=== PATIENT | female | born 1985 | race Two or more races ===

== ENCOUNTER 2017-01-25 11:43 | Emergency (ER) | payer SELFPAY ==
[~2017-01-25] VITALS: Ht 154.9 cm; Wt 59.0 kg
[2017-01-25 11:50] VITALS: BP 125/76
== END 2017-01-25 14:40 | disposition left against medical advice (07) ==
LOC: ER 11:43
DX: S01.81XA Laceration without foreign body of other part of head, initial encounter (principal); Z53.21 Procedure and treatment not carried out due to patient leaving prior to being seen by health care provider; X58.XXXA Exposure to other specified factors, initial encounter; Y93.89 Activity, other specified; Y92.89 Other specified places as the place of occurrence of the external cause; Y99.8 Other external cause status